=== PATIENT | male | born 1960 | race Caucasian/White ===

== ENCOUNTER 2024-05-24 08:19 | Emergency (ER) | payer MEDICARE, MEDICAID ==
[~2024-05-24] VITALS: Ht 165.1 cm; Wt 75.0 kg
[2024-05-24 08:22] VITALS: O2SAT 100
[2024-05-24] MEDS: ACETAMINOPHEN 325MG TABLET PO ONE (10:57)
[2024-05-24 11:25] VITALS: BP 122/88; PULSE 89; RESP 16; TEMP 98.7
== END 2024-05-24 11:52 | disposition home or self-care (01) ==
LOC: ER 08:28
DX: Z04.3 Encounter for examination and observation following other accident (principal); J44.9 Chronic obstructive pulmonary disease, unspecified; I10 Essential (primary) hypertension; E11.9 Type 2 diabetes mellitus without complications; E78.00 Pure hypercholesterolemia, unspecified
CPT/HCPCS: 72170; 99284

== ENCOUNTER 2024-11-17 22:00 | Emergency (ER) | payer MEDICARE, MEDICAID ==
[~2024-11-17] VITALS: Ht 170.2 cm; Wt 60.0 kg
[2024-11-17 22:07] VITALS: BP 143/78; PULSE 76; RESP 16; TEMP 36.8; O2SAT 99
[2024-11-18] MEDS ORDERED: BACITRACIN ZINC OINT UDPKT TOP ONE
[2024-11-18] MEDS ORDERED: LIDOCAINE HCL/PF 1% 10 MG/ML 5ML VIAL INFIL ONE
[2024-11-18] MEDS: TETANUS, DIPHTHERIA, PERTUSSIS VAC/PF 0.5ML (>10YR OLD) IM ONE (00:19)
== END 2024-11-18 08:18 | disposition home or self-care (01) ==
LOC: ER 22:00
DX: S09.8XXA Other specified injuries of head, initial encounter (principal); F20.9 Schizophrenia, unspecified; I10 Essential (primary) hypertension; J44.9 Chronic obstructive pulmonary disease, unspecified; Z86.73 Personal history of transient ischemic attack (TIA), and cerebral infarction without residual deficits; Y04.0XXA Assault by unarmed brawl or fight, initial encounter; Y93.89 Activity, other specified; Y92.89 Other specified places as the place of occurrence of the external cause; Y99.8 Other external cause status
CPT/HCPCS: 99285; 70450; 90715; 90471; J2003